=== PATIENT | female | born 1950 | race Caucasian/White ===

== ENCOUNTER 2020-03-08 10:23 | Emergency (ER) | payer MEDICARE ==
[~2020-03-08] VITALS: Ht 160 cm; Wt 72.7 kg
[2020-03-08 10:39] VITALS: BP 180/99
--- NOTE | 2020-03-08 10:40 | NUR ---
FIRST CONTACT WITH PT. PT STATED "BP 168/103 LAST NIGHT, THIS AM 155/93 AFTER MEDS", DENIES OTHER SYMPTOMS OR CHEST PAIN TODAY. PT'S AOX4. RESPS EVEN AND UNLABORED. BP 180/99 AT THIS TIME. BP/SPO2 MONITORS IN PLACE. CALL LIGHT WITHIN REACH.
--- NOTE | 2020-03-08 11:20 | NUR ---
Patient given discharge instructions and they have confirmed that they understand the instructions. Patient ambulatory with steady gait.
== END 2020-03-08 11:21 | disposition home or self-care (01) ==
LOC: ED 11:10
DX: I10 Essential (primary) hypertension (principal); R42 Dizziness and giddiness
CPT/HCPCS: 99281